=== PATIENT | male | born 1945 | race Caucasian/White ===

== ENCOUNTER 2017-03-20 03:15 | Emergency (ER) | payer OTHER ==
[2017-03-20 03:31] VITALS: TEMP 97.9
[2017-03-20] MEDS ORDERED: TDAP ADULT 0.5 ML INJ (BOOSTRIX) IM ONE (04:29)
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
[2017-03-20 04:49] VITALS: BP 140/87; PULSE 60; RESP 18; O2SAT 95
== END 2017-03-20 04:48 ==
PROC: 0HQ1XZZ Repair Face Skin, External Approach (ICD-10-PCS; principal; 2017-03-20)
DX: S01.81XA Laceration without foreign body of other part of head, initial encounter (principal); F17.200 Nicotine dependence, unspecified, uncomplicated; W22.8XXA Striking against or struck by other objects, initial encounter; Y92.149 Unspecified place in prison as the place of occurrence of the external cause